=== PATIENT | male | born 1990 | race American Indian/Alaskan Native ===

== ENCOUNTER 2016-05-09 19:28 | Emergency (ER) | payer SELFPAY ==
[2016-05-09 21:24] LABS: Basophils % (Auto) 0.3 % (0.0-1.8); Eosinophils % (Auto) 1.2 % (0.0-4.3); Hemoglobin 12.2 gm/dl (11.8-15.2); Mean Corpuscular HGB Conc 32 % (32-34); Mean Corpuscular Hemoglobin 26 pg (28-32); Mean Corpuscular Volume 82 fl (84-94); Platelet Count 242 K/mm3 (140-440); Red Blood Count 4.65 M/mm3 (3.65-5.03); Red Cell Distribution Width 15.8 % (13.2-15.2); White Blood Count 7.4 K/mm3 (4.5-11.0)
[2016-05-09 21:26] LABS: Bilirubin,Urine NEG (Negative); Blood,Urine NEG (Negative); Ketones,Urine NEG (Negative); Leukocyte Esterase,Urine NEG (Negative); Mucus,Urine FEW /HPF; Nitrite,Urine NEG (Negative); Protein,Urine <15 mg/dL mg/dL (Negative); RBC,Urine < 1.0 /HPF (0.0-6.0); Urobilinogen,Urine < 2.0 mg/dL (<2.0); WBC,Urine < 1.0 /HPF (0.0-6.0)
[2016-05-09 21:39] LABS: Anion Gap 16 mmol/L; BUN/Creatinine Ratio 11.42; Blood Urea Nitrogen 8 mg/dL (9-20); Calcium 8.8 mg/dL (8.4-10.2); Carbon Dioxide 27 mmol/L (22-30); Chloride 98.8 mmol/L (98-107); Glucose 91 mg/dL (75-100); Potassium 4.1 mmol/L (3.6-5.0); Sodium 138 mmol/L (137-145)
[2016-05-10 00:05] VITALS: BP 129/89
--- NOTE | 2016-05-12 19:44 | ED Elopement Review ---
ED Pt Elopement review - Results review Lab results: Laboratory Tests 05/09/16 05/09/16 05/09/16 21:07 21:07 Unknown WBC 7.4 RBC 4.65 Hgb 12.2 Hct 38.0 MCV 82 L MCH 26 L MCHC 32 RDW 15.8 H Plt Count 242 Lymph % (Auto) 30.3 Bartholomew % (Auto) 8.4 H Eos % (Auto) 1.2 Baso % (Auto) 0.3 Lymph # 2.3 Bartholomew # 0.6 Eos # 0.1 Baso # 0.0 Seg Neutrophils % 59.8 Seg Neutrophils # 4.4 Sodium 138 Potassium 4.1 Chloride 98.8 Carbon Dioxide 27 Anion Gap 16 BUN 8 L Creatinine 0.7 L Estimated GFR > 60 BUN/Creatinine Ratio 11.42 Glucose 91 Calcium 8.8 Urine Color Yellow Urine Turbidity Clear Urine pH 6.0 Ur Specific Hydes 1.017 Urine Protein <15 mg/dl Urine Glucose (UA) Neg Urine Ketones Neg Urine Blood Neg Urine Nitrite Neg Urine Bilirubin Neg Urine Urobilinogen < 2.0 Ur Leukocyte Esterase Neg Urine WBC (Auto) < 1.0 Urine RBC (Auto) < 1.0 Urine Mucus Few - Call Back decision Pt Call Back Decision: No action required
== END 2016-05-10 02:00 | disposition left against medical advice (07) ==
LOC: ED 19:28
DX: R50.9 Fever, unspecified (principal); K62.89 Other specified diseases of anus and rectum; Z53.21 Procedure and treatment not carried out due to patient leaving prior to being seen by health care provider
CPT/HCPCS: 36415; 80048; 81001; 85025

== ENCOUNTER 2017-03-20 13:13 | Emergency (ER) | payer SELFPAY ==
--- NOTE | 2017-03-20 19:45 | Emergency Department Report ---
Minor Respiratory - HPI Chief Complaint: Upper Respiratory Infection Stated Complaint: FLU-LIKE SYMPTOMS Time Seen by Provider: 03/20/17 19:28 Duration: 3 Days Severity: mild Minor Respiratory: Yes Rhinorrhea, Yes Able to Tolerate Fluids, Yes Cough, No Sore Throat, No Ear Pain, No Sick Contacts, No Hemoptysis, No Chest Pain, No Shortness of Breath, No Fever Other History: This is a 26 y.o. male presents with body aches, nausea, and cough for 3 days. Patient states symptoms started 1 week ago. He started to feel better and decided not to come in. He has not taken any OTC medicine for symptoms. Denies SOB, nausea, vomiting, abdominal pain, and chest pain. History of HIV. Admits to not going to work today because his boyfriend was caught cheating on him. He wants a doctor note to return to work tomorrow. ED Review of Systems ROS: Stated complaint: FLU-LIKE SYMPTOMS Other details as noted in HPI Constitutional: denies: chills, fever ENT: congestion. denies: ear pain, throat pain, dental pain, hearing loss Respiratory: cough. denies: orthopnea, shortness of breath, wheezing Cardiovascular: denies: chest pain, palpitations Gastrointestinal: denies: abdominal pain, nausea, diarrhea Musculoskeletal: denies: back pain, joint swelling, arthralgia Neurological: denies: headache, weakness, paresthesias ED Past Medical Hx - Past Medical History Hx HIV: Yes - Surgical History Past Surgical History?: No Additional Surgical History: Anal warts - Social History Smoking Status: Never Smoker Substance Use Type: None Minor Respiratory Exam - Exam General: Vital signs noted. No distress. Alert and acting appropriately. HEENT: Yes Pharyngeal Erythema, Yes Moist Mucous Membranes, Yes Rhinorrhea, No Pharyngeal Exudates, No Conjuctival Injection, No Frontal Tenderness, No Maxillary Tenderness Ear: Neither TM Bulge, Neither TM Erythema, Neither EAC Pain, Neither EAC Discharge Neck: Yes Supple, No Adenopathy Lungs: Yes Good Air Exchange, Yes Cough, No Wheezes, No Ronchi, No Stridor, No Labored Respirations, No Retractions, No Use of Accessory Muscles, No Other Abnormal Lung Sounds Heart: Yes Regular, No Murmur Abdomen: Yes Normal Bowel Sounds, No Tenderness, No Peritoneal Signs Skin: No Rash, No Edema Neurologic: Alert and oriented, no deficits. Musculoskeletal: Unremarkable. ED Course Vital Signs 03/20/17 13:59 Temperature 97.8 F Pulse Rate 88 Respiratory 16 Rate Blood Pressure 102/71 O2 Sat by Pulse 96 Oximetry ED Medical Decision Making - Medical Decision Making 26 y.o. male presented with URI symptoms. Admitted at the end of assessment he only came in for doctor note. He didn't go to work today because he caught his boyfriend cheating on him yesterday and was distraught. Vitals stable. Normal assessment. Discharged home. Encouraged to do supportive care for URI. No medication ordered. Return to work tomorrow. Critical care attestation.: If time is entered above; I have spent that time in minutes in the direct care of this critically ill patient, excluding procedure time. ED Disposition Clinical Impression: URI (upper respiratory infection) Qualifiers: URI type: acute nasopharyngitis (common cold) Qualified Code(s): J00 - Acute nasopharyngitis [common cold] Disposition: - TO HOME OR SELFCARE Is pt being admited?: No Does the pt Need Aspirin: No Condition: Stable Instructions: Upper Respiratory Infection (ED), Cold Symptoms (ED) Additional Instructions: Increase fluid intake and rest when possible. Take tylenol and ibuprofen for fever. Wash hands frequently. Follow up with Primary Care Provider. Referrals: [facility] [Outside] - 3-5 Days [facility] [Outside] - 3-5 Days [facility] [Outside] - 3-5 Days Forms: Work/School Release Form(ED) Time of Disposition: 20:45 Print Language: AUSTRIAN
[2017-03-20 20:28] VITALS: BP 120/75
== END 2017-03-20 20:50 | disposition home or self-care (01) ==
LOC: ED 13:13
DX: J00 Acute nasopharyngitis [common cold] (principal); R11.0 Nausea
CPT/HCPCS: 99282

== ENCOUNTER 2017-06-27 21:09 | Emergency (ER) | payer SELFPAY ==
[2017-06-27 21:26] VITALS: BP 117/75
[2017-06-28] MEDS ORDERED: LIDOCAINE VISCOUS 2% PO ONE (02:22)
[2017-06-28] MEDS ORDERED: XYLOCAINE 2% INFILTRATI ONE (02:23)
[2017-06-28 03:20] LABS: Basophils % (Auto) 0.2 % (0.0-1.8); Eosinophils % (Auto) 0.2 % (0.0-4.3); Hematocrit 37.7 % (35.5-45.6); Hemoglobin 12.2 gm/dl (11.8-15.2); Lymphocytes # (Auto) 1.9 K/mm3 (1.2-5.4); Lymphocytes % (Auto) 15.3 % (13.4-35.0); Mean Corpuscular HGB Conc 32 % (32-34); Mean Corpuscular Volume 78 fl (84-94); Monocytes # (Auto) 1.2 K/mm3 (0.0-0.8); Monocytes % (Auto) 9.2 % (0.0-7.3); Platelet Count 268 K/mm3 (140-440); Red Blood Count 4.81 M/mm3 (3.65-5.03); Red Cell Distribution Width 14.5 % (13.2-15.2)
[2017-06-28 03:22] LABS: BUN/Creatinine Ratio 13; Blood Urea Nitrogen 10 mg/dL (9-20); Calcium 8.9 mg/dL (8.4-10.2); Hemolysis Index 0
[2017-06-28 03:26] LABS: Mean Corpuscular Hemoglobin 25 pg (28-32)
[2017-06-28] MEDS ORDERED: PERCOCET 5/325 PO ONE (03:29)
[2017-06-28] MEDS ORDERED: BACTRIM DS PO ONE (03:29)
[2017-06-28] MEDS ORDERED: MORPHINE IM ONE (03:30)
[2017-06-28] MEDS ORDERED: XYLOCAINE TOPICAL 2% 30ML TP ONE (04:37)
--- NOTE | 2017-06-28 05:11 | Emergency Department Report ---
ED General Adult HPI - General Chief complaint: Wound/Laceration Stated complaint: ABSCESS TO BUTTOCKS Time Seen by Provider: 06/28/17 02:18 Source: patient Mode of arrival: Ambulatory Limitations: No Limitations - History of Present Illness Initial comments: Pt is a 27-year-old male past medical history of anal abscess who presents with anal abscess. Patient states pain is a 10 hurts worse when he sits bending makes it better having sex makes it worse. Patient states that the pain is a 10 out of 10 and sore type of pain. Patient states he's had his abscesses drained multiple times before in the past. Patient works at [employer] he does not smoke or drink. Severity scale (0 -10): 8 - Related Data Previous Rx's Medication Instructions Recorded Last Taken Type HYDROcodone/ACETAMINOPHEN [[place] 1 each PO Q6H #15 tablet 06/28/17 Unknown Rx 7.5-325 Tablet] Sulfamethoxazole/Trimethoprim 1 each PO BID #14 tablet 06/28/17 Unknown Rx [Bactrim DS TAB] Allergies Allergy/AdvReac Type Severity Reaction Status Date / Time No Known Allergies Allergy Verified 05/09/16 20:43 ED Review of Systems ROS: Stated complaint: ABSCESS TO BUTTOCKS Other details as noted in HPI Constitutional: denies: chills, fever Eyes: denies: eye pain, eye discharge, vision change ENT: denies: ear pain, throat pain Respiratory: denies: cough, shortness of breath, wheezing Cardiovascular: denies: chest pain, palpitations Endocrine: no symptoms reported Gastrointestinal: other (rectal pain ). denies: abdominal pain, nausea, diarrhea Genitourinary: denies: urgency, dysuria Musculoskeletal: denies: back pain, joint swelling, arthralgia Skin: denies: rash, lesions Neurological: denies: headache, weakness, paresthesias Psychiatric: denies: anxiety, depression Hematological/Lymphatic: denies: easy bleeding, easy bruising ED Past Medical Hx - Past Medical History Hx HIV: Yes - Surgical History Past Surgical History?: Yes Additional Surgical History: Anal warts - Social History Smoking Status: Never Smoker Substance Use Type: None - Medications Home Medications: Home Medications Medication Instructions Recorded Confirmed Last Taken Type HYDROcodone/ACETAMINOPHEN [[place] 1 each PO Q6H #15 tablet 06/28/17 Unknown Rx 7.5-325 Tablet] Sulfamethoxazole/Trimethoprim 1 each PO BID #14 tablet 06/28/17 Unknown Rx [Bactrim DS TAB] ED Physical Exam - General Limitations: No Limitations General appearance: alert, in no apparent distress - Head Head exam: Present: atraumatic, normocephalic - Eye Eye exam: Present: normal appearance - ENT ENT exam: Present: mucous membranes moist - Neck Neck exam: Present: normal inspection - Respiratory Respiratory exam: Present: normal lung sounds bilaterally. Absent: respiratory distress - Cardiovascular Cardiovascular Exam: Present: regular rate, normal rhythm. Absent: systolic murmur, diastolic murmur, rubs, gallop - GI/Abdominal GI/Abdominal exam: Present: soft, normal bowel sounds - Rectal Rectal exam: Present: other (right buttocks abscess 3x4 cm ) - Extremities Exam Extremities exam: Present: normal inspection - Back Exam Back exam: Present: normal inspection - Neurological Exam Neurological exam: Present: alert, oriented X3 - Psychiatric Psychiatric exam: Present: normal affect, normal mood - Skin Skin exam: Present: warm, dry, intact, normal color. Absent: rash ED Course Vital Signs 06/27/17 06/28/17 06/28/17 21:23 04:12 04:13 Temperature 98.9 F Pulse Rate 100 H Respiratory 16 20 18 Rate Blood Pressure 117/75 O2 Sat by Pulse 95 Oximetry - I & D Right Buttocks Type of Procedure: Complex Site: right Blade Size: 11 I & D Procedure: sterile drapes applied Progress: Pt's abscess was drained and tolerated the procedure well. ED Medical Decision Making - Lab Data Result diagrams: 06/28/17 02:46 06/28/17 02:46 Lab Results 06/28/17 06/28/17 Range/Units 02:46 02:46 WBC 12.6 H (4.5-11.0) K/mm3 RBC 4.81 (3.65-5.03) M/mm3 Hgb 12.2 (11.8-15.2) gm/dl Hct 37.7 (35.5-45.6) % MCV 78 L (84-94) fl MCH 25 L (28-32) pg MCHC 32 (32-34) % RDW 14.5 (13.2-15.2) % Plt Count 268 (140-440) K/mm3 Lymph % (Auto) 15.3 (13.4-35.0) % [place] % (Auto) 9.2 H (0.0-7.3) % Eos % (Auto) 0.2 (0.0-4.3) % Baso % (Auto) 0.2 (0.0-1.8) % Lymph # 1.9 (1.2-5.4) K/mm3 [place] # 1.2 H (0.0-0.8) K/mm3 Eos # 0.0 (0.0-0.4) K/mm3 Baso # 0.0 (0.0-0.1) K/mm3 Seg Neutrophils % 75.1 H (40.0-70.0) % Seg Neutrophils # 9.5 H (1.8-7.7) K/mm3 Sodium 137 (137-145) mmol/L Potassium 4.0 (3.6-5.0) mmol/L Chloride 98.2 (98-107) mmol/L Carbon Dioxide 27 (22-30) mmol/L Anion Gap 16 mmol/L BUN 10 (9-20) mg/dL Creatinine 0.8 (0.8-1.5) mg/dL Estimated GFR > 60 ml/min BUN/Creatinine Ratio 13 % Glucose 88 (75-100) mg/dL Calcium 8.9 (8.4-10.2) mg/dL - Medical Decision Making Chief medical diagnosis: Abscess of buttock differential medical diagnosis: Anal abscess, cellulitis I will get a CBC, BMP, IM pain medicine, oral pain medi and I will incise and drain abscess. Patient tolerated the procedure well I'll send patient home additional verbal discharge structures were given. Critical care attestation.: If time is entered above; I have spent that time in minutes in the direct care of this critically ill patient, excluding procedure time. ED Disposition Clinical Impression: Anal abscess, Anal pain Disposition: DC-01 TO HOME OR SELFCARE Is pt being admited?: No Does the pt Need Aspirin: No Condition: Stable Instructions: Anorectal Abscess and Anal Fistula (ED) Prescriptions: HYDROcodone/ACETAMINOPHEN [Brandon 7.5-325 Tablet] 1 each PO Q6H #15 tablet Sulfamethoxazole/Trimethoprim [Bactrim DS TAB] 1 each PO BID #14 tablet Referrals: DORA URENA MD [Staff Physician] - 3-5 Days
== END 2017-06-28 05:41 | disposition home or self-care (01) ==
LOC: ED 21:09
DX: K61.0 Anal abscess (principal); R10.2 Pelvic and perineal pain
CPT/HCPCS: 36415; 46050; 80048; 85025; 96372; 99283; J2270

== ENCOUNTER 2017-11-02 06:46 | Emergency (ER) | payer SELFPAY ==
[2017-11-02 07:24] LABS: Basophils # (Auto) 0.1 K/mm3 (0.0-0.1); Basophils % (Auto) 0.4 % (0.0-1.8); Eosinophils # (Auto) 0.1 K/mm3 (0.0-0.4); Eosinophils % (Auto) 0.6 % (0.0-4.3); Hematocrit 38.3 % (35.5-45.6); Hemoglobin 12.6 gm/dl (11.8-15.2); Lymphocytes # (Auto) 4.2 K/mm3 (1.2-5.4); Lymphocytes % (Auto) 35.6 % (13.4-35.0); Mean Corpuscular HGB Conc 33 % (32-34); Mean Corpuscular Hemoglobin 26 pg (28-32); Mean Corpuscular Volume 80 fl (84-94); Monocytes # (Auto) 1.1 K/mm3 (0.0-0.8); Monocytes % (Auto) 9.5 % (0.0-7.3); Platelet Count 318 K/mm3 (140-440); Red Blood Count 4.82 M/mm3 (3.65-5.03)
[2017-11-02 07:39] LABS: Alanine Aminotransferase 12 units/L (7-56); Albumin 3.3 g/dL (3.9-5); BUN/Creatinine Ratio 13; Blood Urea Nitrogen 10 mg/dL (9-20); Calcium 8.5 mg/dL (8.4-10.2); Hemolysis Index 2; Lipase 33 units/L (13-60)
[2017-11-02 09:22] LABS: Bacteria,Urine 1+ /HPF (Negative); Bilirubin,Urine NEG (Negative); Blood,Urine NEG (Negative); Color,Urine Yellow (Yellow); Mucus,Urine 1+ /HPF; Urobilinogen,Urine < 2.0 mg/dL (<2.0); WBC,Urine < 1.0 /HPF (0.0-6.0)
[2017-11-02] MEDS ORDERED: DUONEB *Not for PRN Use IH ONE (10:38)
[2017-11-02] MEDS ORDERED: XYLOCAINE 1% MPF 5 mL INFILTRATI ONE (10:44)
--- NOTE | 2017-11-02 10:44 | Emergency Department Report ---
HPI - General Chief Complaint: Abdominal Pain Time Seen by Provider: 11/02/17 10:20 - HPI HPI: 27-year-old male presents to the emergency department with a few different complaints. The patient says he is having some acute on chronic shortness of breath. He is a former smoker having just quit "a little bit ago. " He denies any cough, fever, chest pain. He has not taken anything for his symptoms. Presentation. This most recent exacerbation has been going on for the past few weeks. His second complaint is that he has been having some issues with some anal drainage and/or mild stool incontinence since engaging in anal sex with another individual whose penis was larger than he is used to. He denies any significant rectal, pelvic or abdominal pains. Lastly, the patient has a history of an anal fistula but has had 4 major surgeries and total with the last one being about one year ago. He had it drained a few months ago here at [facility]. It has started to drain once again some malodorous discharge. He says that he has primary care at [facility] but does not really follow up with them. ED Past Medical Hx - Past Medical History Previous Medical History?: Yes Hx HIV: Yes - Surgical History Past Surgical History?: Yes Additional Surgical History: Anal warts - Social History Smoking Status: Never Smoker Substance Use Type: None - Medications Home Medications: Home Medications Medication Instructions Recorded Confirmed Last Taken Type HYDROcodone/ACETAMINOPHEN [[place] 1 each PO Q6H #15 tablet 06/28/17 Unknown Rx 7.5-325 Tablet] HYDROcodone/APAP 5-325 [[place] 1 each PO Q6HR PRN #8 tablet 11/02/17 Unknown Rx 5/325] Ondansetron [Zofran Odt] 4 mg PO Q8H PRN #10 tab.rapdis 11/02/17 Unknown Rx Sulfamethoxazole/Trimethoprim 1 each PO BID #14 tablet 11/02/17 Unknown Rx [Bactrim DS TAB] ED Review of Systems ROS: Stated complaint: DIARRHEA,CHILLS Other details as noted in HPI Comment: All other systems reviewed and negative Constitutional: denies: chills, fever Eyes: denies: eye pain, eye discharge, vision change ENT: denies: ear pain, throat pain Respiratory: shortness of breath. denies: cough, wheezing Cardiovascular: denies: chest pain, palpitations Gastrointestinal: other (mild stool incontinence, anal fistula drainage). denies: vomiting, melena Genitourinary: denies: urgency, dysuria Musculoskeletal: denies: back pain, joint swelling, arthralgia Skin: lesions (anal fistula). denies: rash Neurological: denies: headache, weakness Physical Exam - Physical Exam Vital Signs: Vital Signs 11/02/17 06:57 Temperature 98.4 F Pulse Rate 99 H Respiratory 17 Rate Blood Pressure 117/80 O2 Sat by Pulse 99 Oximetry Physical Exam: GENERAL: The patient is well-developed well-nourished. HENT: Normocephalic. Atraumatic. Patient has moist mucous membranes. EYES: Extraocular motions are intact. Pupils equal reactive to light bilaterally. NECK: Supple. Trachea is midline. CHEST/LUNGS: Clear to auscultation. No cough. No tachypnea some muscle use. There is no respiratory distress noted. HEART/CARDIOVASCULAR: Regular. There is no tachycardia. There is no murmur. ABDOMEN: Abdomen is soft, nontender. Patient has normal bowel sounds. There is no abdominal distention. SKIN: Skin is warm and dry. There is a small area of fluctuance to the right buttock towards the medial portion consistent with a small abscess that is most likely part of the anal fistula. There is also a small area of purulent drainage seen superior to the rectum within the cleft of the buttocks. NEURO: The patient is awake, alert, and oriented. The patient is cooperative. The patient has no focal neurologic deficits. The patient has normal speech and gait. MUSCULOSKELETAL: There is no tenderness or deformity. There is no limitation range of motion. There is no evidence of acute injury. ED Course Vital Signs 11/02/17 06:57 Temperature 98.4 F Pulse Rate 99 H Respiratory 17 Rate Blood Pressure 117/80 O2 Sat by Pulse 99 Oximetry - I & D Right Buttocks Type of Procedure: Simple Site: right medial buttock Blade Size: 11 I & D Procedure: betadine prep, sterile drapes applied, sterile dressing applied , gauze wick placed Progress: The area was cleaned with alcohol swabs before 2 mL of 1% lidocaine without epinephrine was used for local anesthetic. The area was then cleaned with Betadine before a 1 cm incision was made with an 11 blade scalpel. There was about 1.5 mL of purulent return. There is also an area towards the top of the cleft of the buttocks where there is some purulent return showing the tract for this patient's anal fistula. The area that was incised and drained in the buttock was then packed with iodoform gauze and covered with sterile gauze. ED Medical Decision Making - Lab Data Result diagrams: 11/02/17 07:06 11/02/17 07:06 - Radiology Data Radiology results: image reviewed interpreted by me: Chest x-ray does not show any acute process. There are no pleural effusions, obvious pneumonia and there is no pneumothorax. Abdominal x-ray shows a large amount of stool but no signs of obstruction. - Medical Decision Making Patient came for multiple different complaints. Regarding the patient's shortness of breath, he does not appear in any type of respiratory distress. There is no significant bronchospasm. There is no tachypnea, accessory muscle use, hypoxia. He was given a breathing treatment with some improvement. It is also a chronic issue for him. Regarding the patient's anal fistula and/or abscess, an I&D was done with about 1.5 mL of purulent return and then iodoform gauze was packed. The patient will follow up somewhere in 2 days for removal of packing and wound check. He was placed on antibiotics. Regarding the patient's complaint of some loose stool incontinence since having anal intercourse, there does not appear to be any rectal trauma. Despite this complaint of incontinence, I have not seen it here in the emergency department and the patient has good rectal tone. He does have a large amount of stool seen on x-ray and it is possible that some of that is the reason for this leakage of watery stool around it. Patient says that he has some MiraLAX and stool softeners that he can use at home. For both this complaint, as well as the anal fistula, the patient was given a referral for colon and rectal surgeons. He has been instructed to return to the emergency Department with any worsening of his symptoms or any acute distress. He understands and agrees to the plan. - Differential Diagnosis abscess, anal fistula,, pneumonia, gastroenteritis Critical Care Time: No Critical care attestation.: If time is entered above; I have spent that time in minutes in the direct care of this critically ill patient, excluding procedure time. ED Disposition Clinical Impression: Increased stool volume, Abscess of buttock, right, Anal fistula Stool incontinence Qualifiers: Fecal incontinence type: unspecified Qualified Code(s): R15.9 - Full incontinence of feces Disposition: TO HOME OR SELFCARE Is pt being admited?: No Condition: Stable Instructions: Constipation (ED), Abscess Incision and Drainage (ED), Abscess ( ED) Additional Instructions: These follow-up with your primary care physician at [facility] as soon as possible. I have given her a referral for a local colorectal surgery group to be evaluated and discuss your issues with the chronic anal fistula. The iodoform gauze packing will need to be removed in 2 days and a wound check to be done. This can be done here in the emergency department, at an urgent care, or a primary care office. Take the antibiotics as prescribed. Return to the emergency Department with any worsening of your symptoms or any acute distress. Prescriptions: HYDROcodone/APAP 5-325 [[place] 5/325] 1 each PO Q6HR PRN #8 tablet PRN Reason: Pain Ondansetron [Zofran Odt] 4 mg PO Q8H PRN #10 tab.rapdis PRN Reason: Nausea Sulfamethoxazole/Trimethoprim [Bactrim DS TAB] 1 each PO BID #14 tablet Referrals: PRIMARY CARE, [Primary Care Provider] - CHRIST KOO MD [Staff Physician] - 3-5 Days Time of Disposition: 12:28
[2017-11-02] MEDS ORDERED: NACL 0.9% 0 ML IR ONE (11:24)
--- NOTE | 2017-11-02 11:47 | XRay Report ---
FINAL REPORT EXAM: XR ABDOMEN 2V HISTORY: abd pain TECHNIQUE: Supine and upright abdomen PRIORS: None. FINDINGS: There is no free air. There is prominent stool throughout colon. Correlate for constipation. Gas pattern is otherwise nonspecific and nonobstructive with some gas in nondilated bowel and colon. No suspicious calcifications are seen. IMPRESSION: Fairly prominent amount of stool. Correlate for constipation. Otherwise, nonspecific, nonobstructive abdomen.
--- NOTE | 2017-11-02 12:07 | XRay Report ---
FINAL REPORT EXAM: XR CHEST ROUTINE 2V HISTORY: SOB TECHNIQUE: Chest, two views PRIORS: None. FINDINGS: The heart size is normal. Mediastinal contours are normal. Pulmonary vasculature is not congested. The lungs are clear. There are no pleural effusion seen. There is no evidence of pneumothorax. IMPRESSION: There is no acute abnormality identified.
[2017-11-02 12:48] VITALS: BP 106/60
== END 2017-11-02 13:06 | disposition home or self-care (01) ==
LOC: ED 06:46
DX: L02.31 Cutaneous abscess of buttock (principal); K60.3 Anal fistula; R15.9 Full incontinence of feces; R06.02 Shortness of breath
CPT/HCPCS: 36415; 71046; 74019; 80053; 81001; 83690; 85025; 94640